=== PATIENT | male | born 1985 | race Caucasian/White ===

== ENCOUNTER 2021-09-26 10:01 | Inpatient (IN) | payer MEDICAID, OTHER ==
[~2021-09-26] VITALS: Ht 170.2 cm; Wt 68.1 kg
[2021-09-26 10:34] LABS: BASOPHILS % 1.4 % (0.0-2.0); EOSINOPHILS % 0.3 % (0.0-5.0); HEMATOCRIT. 45.9 % (42.0-52.0); HEMOGLOBIN. 14.8 g/dL (14.0-18.0); LYMPHOCYTES % 12.6 % (20.0-50.0); MEAN CORPUSCULAR HEMOGLOBIN 25.6 pg (28.0-32.0); MEAN CORPUSCULAR VOLUME 79.1 fL (80.0-94.0); MONOCYTES % 4.7 % (2.0-8.0); PLATELET 627 x1000/uL (130-400); RED CELL DISTRIBUTION WIDTH 17.4 % (11.6-14.6)
[2021-09-26 10:42] LABS: CHLORIDE 104 mEq/L (98-107)
[2021-09-26] MEDS ORDERED: ASPIRIN 325MG EC TABLET PO ONE (10:45)
[2021-09-26] MEDS ORDERED: LIDOCAINE HCL 1% 20ML VIAL (Pyxis) INJ ONE (12:25)
[2021-09-26] MEDS ORDERED: FUROSEMIDE 40MG/4ML VIAL IVP NR (15:30)
[2021-09-26] MEDS ORDERED: DIPHENHYDRAMINE 50MG/ML VIAL IV PRN (15:30)
[2021-09-26] MEDS ORDERED: ACETAMINOPHEN 325MG TABLET PO PRN (15:30)
[2021-09-26] MEDS ORDERED: CLONIDINE 0.1MG TABLET PO PRN (15:30)
[2021-09-26] MEDS ORDERED: ONDANSETRON HCL 4MG/2ML INJ IV PRN (15:30)
[2021-09-26] MEDS ORDERED: GUAIFENESIN 200MG/10ML SUGAR FREE UDC PO PRN (15:30)
[2021-09-26] MEDS ORDERED: MAGNESIUM/ALUMINUM HYDROXIDE/SIMETHICONE 30ML UDC PO PRN (15:30)
[2021-09-26] MEDS ORDERED: IPRATROPIUM/ALBUTEROL 0.5-3(2.5)MG/3ML NEB HHN PRN (15:30)
[2021-09-26] MEDS ORDERED: NALOXONE HCL 0.4MG/ML VIAL IV PRN (15:45)
[2021-09-26] MEDS ORDERED: METOPROLOL TARTRATE 5MG/5ML VIAL IV PRN (16:00)
[2021-09-26] MEDS ORDERED: AMIODARONE HCL 900 MG in DEXT 5% WATER 482 ML IV SCH ×4 (16:00)
[2021-09-26] MEDS ORDERED: DIGOXIN 500MCG/2ML AMP IV SCH (16:00)
[2021-09-26] MEDS ORDERED: AMIODARONE HCL 150 MG in DEXT 5% WATER 100 ML IV SCH (16:00)
[2021-09-26 16:12] LABS: INR 1.4; PROTHROMBIN TIME 14.4 sec (9.6-11.0)
[2021-09-26] MEDS: ENOXAPARIN 40MG/0.4ML SYR SUBCUT SCH (16:33)
[2021-09-26] MEDS: METOPROLOL TARTRATE 50MG TABLET PO SCH ×2 (16:33→21:00)
[2021-09-26] MEDS: FUROSEMIDE 40MG/4ML VIAL IVP SCH (18:00)
[2021-09-26] MEDS ORDERED: METOPROLOL TARTRATE 50MG TABLET PO SCH (21:00)
[2021-09-26] MEDS: AMIODARONE HCL 200 MG TABLET PO SCH (21:00)
[2021-09-26] MEDS ORDERED: ZOLPIDEM TARTRATE 5MG TABLET PO PRN (21:00)
[2021-09-26] MEDS: ATORVASTATIN CALCIUM 10MG TABLET PO SCH (21:44)
[2021-09-26] MEDS: HYDROCODONE/ACETAMINOPHEN 5/325MG TABLET PO PRN (21:47)
[2021-09-26 22:23] VITALS: BP 105/74
[2021-09-27] VITALS (15 sets, daily range): BP systolic 91–147; BP diastolic 47–118
[2021-09-27 06:17] LABS: BASOPHILS % 0.4 % (0.0-2.0); EOSINOPHILS % 0.1 % (0.0-5.0); HEMATOCRIT. 40.4 % (42.0-52.0); HEMOGLOBIN. 12.9 g/dL (14.0-18.0); LYMPHOCYTES % 9.8 % (20.0-50.0); MEAN CORPUSCULAR HEMOGLOBIN 25.5 pg (28.0-32.0); MEAN CORPUSCULAR VOLUME 79.4 fL (80.0-94.0); MEAN PLATELET VOLUME 7.4 fl (7.4-10.4); MONOCYTES % 6.3 % (2.0-8.0); NEUTROPHILS % 83.4 % (40.0-76.0); PLATELET 509 x1000/uL (130-400); RED BLOOD CELL COUNT 5.09 mill/uL (4.7-6.1); RED CELL DISTRIBUTION WIDTH 17.1 % (11.6-14.6)
[2021-09-27 06:29] LABS: CHLORIDE 107 mEq/L (98-107)
[2021-09-27] MEDS: FUROSEMIDE 40MG/4ML VIAL IVP SCH (06:52)
[2021-09-27] MEDS: SODIUM CHLORIDE 0.9% INJ 3ML FLUSH IVF SCH ×3 (06:53→21:22)
[2021-09-27] MEDS ORDERED: FUROSEMIDE 40MG/4ML VIAL IVP SCH (07:15)
[2021-09-27] MEDS ORDERED: ASPIRIN 81MG EC TABLET PO SCH (09:00)
[2021-09-27] MEDS: SPIRONOLACTONE 25MG TABLET PO SCH (09:17)
[2021-09-27] MEDS: METOPROLOL TARTRATE 50MG TABLET PO SCH ×2 (09:17→21:00)
[2021-09-27] MEDS: AMIODARONE HCL 200 MG TABLET PO SCH ×2 (09:17→21:21)
[2021-09-27 14:42] LABS: *AMPHETAMINES SCREEN URINE NEGATIVE (NEGATIVE); *BARBITURATES SCREEN URINE NEGATIVE (NEGATIVE); *BENZODIAZEPINES SCREEN URINE NEGATIVE (NEGATIVE); METHADONE URINE SCREEN NEGATIVE (NEGATIVE)
[2021-09-27 14:43] LABS: *COCAINE SCREEN URINE NEGATIVE (NEGATIVE); CANNABINOID URINE SCREEN NEGATIVE (NEGATIVE); OPIATES URINE SCREEN PRESUMTIVE POSITIVE (NEGATIVE); PHENCYCLIDINE URINE SCREEN NEGATIVE (NEGATIVE)
[2021-09-27] MEDS: ENOXAPARIN 40MG/0.4ML SYR SUBCUT SCH (14:54)
[2021-09-27] MEDS ORDERED: MORPHINE SULFATE 4 MG/ML CPJ (NOT FOR IM USE) IV NR (18:00)
[2021-09-27] MEDS ORDERED: VANCOMYCIN 1500MG in DEXTROSE 5% WATER 250ML IV NR (18:00)
[2021-09-27] MEDS ORDERED: LIDOCAINE HCL 1% 20ML VIAL (Pyxis) INJ INFIL ONE (18:00)
[2021-09-27] MEDS: ATORVASTATIN CALCIUM 10MG TABLET PO SCH (21:35)
[2021-09-27] MEDS: LEVOFLOXACIN 500MG PREMIX 100 ML IV SCH (21:36)
[2021-09-27] MEDS: HYDROCODONE/ACETAMINOPHEN 5/325MG TABLET PO PRN (21:43)
[2021-09-28] VITALS: BP 115/82
[2021-09-28 02:47] LABS: CLARITY URINE CLEAR (CLEAR); COLOR URINE DARK YELLOW (YELLOW); SPECIFIC GRAVITY URINE 1.028 (1.005-1.030)
[2021-09-28 02:48] LABS: KETONES URINE TRACE (NEGATIVE); PROTEIN URINE 1+ (NEGATIVE)
[2021-09-28 02:49] LABS: LEUKOCYTE ESTERASE URINE TRACE (NEGATIVE); NITRITE URINE POSITIVE (NEGATIVE); OCCULT BLOOD URINE NEGATIVE (NEGATIVE)
[2021-09-28 04:00] VITALS: BP 115/72
[2021-09-28] MEDS: SODIUM CHLORIDE 0.9% INJ 3ML FLUSH IVF SCH ×3 (05:44→21:47)
[2021-09-28] MEDS ORDERED: VANCOMYCIN 1G PREMIX 200 ML IV SCH (06:00)
[2021-09-28 08:00] VITALS: BP 114/78
[2021-09-28 08:58] LABS: BG BASE EXCESS -1.8 mmol/L (-2.0-2.0); BG CARBOXYHEMOGLOBIN 1.3 % (0.5-1.5); BG DEOXYHEMOGLOBIN 9.3 % (0.0-5.0); BG FRACTION INSPIRED OXYGEN 21; BG METHEMOGLOBIN 0.4 % (0.0-1.5); BG OXYGEN SATURATION 90.5 % (92.0-98.5); BG PCO2 27.8 mmHg (35.0-45.0); BG PH 7.474 (7.350-7.450); BG PO2 57.8 mmHg (75.0-100.0); BG SAMPLE SITE LEFT RADIAL; BG TOTAL HEMOGLOBIN 17.3 g/dL (12.0-18.0); BG VENT MODE ROOM AIR
[2021-09-28] MEDS ORDERED: DIGOXIN 500MCG/2ML AMP IV NR (09:00)
[2021-09-28] MEDS ORDERED: FUROSEMIDE 40MG/4ML VIAL IVP SCH (09:00)
[2021-09-28] MEDS: AMIODARONE HCL 200 MG TABLET PO SCH ×2 (10:08→21:43)
[2021-09-28] MEDS: METOPROLOL TARTRATE 50MG TABLET PO SCH ×2 (10:09→21:00)
[2021-09-28] MEDS: SPIRONOLACTONE 25MG TABLET PO SCH (10:10)
[2021-09-28 12:00] VITALS: BP 105/68
[2021-09-28] MEDS: HYDROCODONE/ACETAMINOPHEN 10/325MG TABLET PO PRN (15:06)
[2021-09-28] MEDS: ENOXAPARIN 40MG/0.4ML SYR SUBCUT SCH (15:07)
[2021-09-28 16:00] VITALS: BP 107/64
[2021-09-28] MEDS: LEVOFLOXACIN 500MG PREMIX 100 ML IV SCH (18:11)
[2021-09-28] MEDS: DIGOXIN 500MCG/2ML AMP IV SCH (18:12)
[2021-09-28 20:00] VITALS: BP 109/87
[2021-09-28] MEDS ORDERED: VANCOMYCIN 1.25GM PMX (XELLIA) 250 ML IV SCH (21:00)
[2021-09-28] MEDS: IPRATROPIUM BROMIDE (0.02%) 0.5MG/2.5ML NEB HHN SCH (21:02)
[2021-09-28] MEDS: ATORVASTATIN CALCIUM 10MG TABLET PO SCH (21:43)
[2021-09-28] MEDS: TEMAZEPAM 15MG CAPSULE PO SCH (21:43)
[2021-09-28] MEDS: VANCOMYCIN 1250MG in DEXTROSE 5% WATER 250ML IV SCH (21:47)
[2021-09-29] VITALS: BP 123/73
[2021-09-29 04:00] VITALS: BP 126/69
[2021-09-29] MEDS: IPRATROPIUM BROMIDE (0.02%) 0.5MG/2.5ML NEB HHN SCH ×4 (05:26→20:46)
[2021-09-29] MEDS: SODIUM CHLORIDE 0.9% INJ 3ML FLUSH IVF SCH ×3 (05:56→20:50)
[2021-09-29 05:59] LABS: BASOPHILS % 0.2 % (0.0-2.0); EOSINOPHILS % 0.3 % (0.0-5.0); HEMATOCRIT. 46.3 % (42.0-52.0); LYMPHOCYTES % 8.9 % (20.0-50.0); MEAN CORPUSCULAR HEMOGLOBIN 25.1 pg (28.0-32.0); MEAN CORPUSCULAR VOLUME 77.8 fL (80.0-94.0); MEAN PLATELET VOLUME 7.3 fl (7.4-10.4); MONOCYTES % 6.9 % (2.0-8.0); NEUTROPHILS % 83.7 % (40.0-76.0); PLATELET 454 x1000/uL (130-400); RED BLOOD CELL COUNT 5.96 mill/uL (4.7-6.1); RED CELL DISTRIBUTION WIDTH 17.2 % (11.6-14.6)
[2021-09-29 06:48] LABS: CHLORIDE 106 mEq/L (98-107)
[2021-09-29 08:00] VITALS: BP 95/60
[2021-09-29] MEDS: METOPROLOL TARTRATE 50MG TABLET PO SCH ×2 (08:59→20:50)
[2021-09-29] MEDS: VANCOMYCIN 1250MG in DEXTROSE 5% WATER 250ML IV SCH (08:59)
[2021-09-29] MEDS: AMIODARONE HCL 200 MG TABLET PO SCH ×2 (08:59→20:49)
[2021-09-29] MEDS: FUROSEMIDE 40MG TABLET PO SCH (09:00)
[2021-09-29] MEDS: SPIRONOLACTONE 25MG TABLET PO SCH (09:00)
[2021-09-29 12:00] VITALS: BP 98/68
[2021-09-29] MEDS: AMPICILLIN SOD/SULBACTAM NA 3 G in SODIUM CHLORIDE 0.9% 100 ML IV SCH ×3 (14:52→23:20)
[2021-09-29] MEDS: ENOXAPARIN 80MG/0.8ML SYR SUBCUT SCH (14:53)
[2021-09-29] MEDS: HYDROCODONE/ACETAMINOPHEN 10/325MG TABLET PO PRN (15:05)
[2021-09-29 15:51] VITALS: BP 117/69
[2021-09-29] MEDS: DIGOXIN 500MCG/2ML AMP IV SCH (17:22)
[2021-09-29] MEDS: VANCOMYCIN 750 MG in DEXT 5% WATER 250 ML IV SCH (17:22)
[2021-09-29 20:00] VITALS: BP 127/67
[2021-09-29] MEDS: TEMAZEPAM 15MG CAPSULE PO SCH (20:49)
[2021-09-29] MEDS: ATORVASTATIN CALCIUM 10MG TABLET PO SCH (20:49)
[2021-09-30] VITALS: BP 100/68
[2021-09-30] MEDS: HYDROCODONE/ACETAMINOPHEN 10/325MG TABLET PO PRN ×2 (00:35→17:44)
[2021-09-30] MEDS: IPRATROPIUM BROMIDE (0.02%) 0.5MG/2.5ML NEB HHN SCH ×4 (02:13→21:01)
[2021-09-30 04:00] VITALS: BP 106/63
[2021-09-30] MEDS: AMPICILLIN SOD/SULBACTAM NA 3 G in SODIUM CHLORIDE 0.9% 100 ML IV SCH ×3 (05:05→17:42)
[2021-09-30] MEDS: ENOXAPARIN 80MG/0.8ML SYR SUBCUT SCH ×2 (05:06→17:42)
[2021-09-30] MEDS: VANCOMYCIN 750 MG in DEXT 5% WATER 250 ML IV SCH ×2 (06:42→17:43)
[2021-09-30] MEDS: SODIUM CHLORIDE 0.9% INJ 3ML FLUSH IVF SCH ×3 (06:42→21:35)
[2021-09-30 07:43] LABS: INR 1.3
[2021-09-30 08:00] VITALS: BP 98/62
[2021-09-30] MEDS: METOPROLOL TARTRATE 50MG TABLET PO SCH ×2 (09:00→21:00)
[2021-09-30] MEDS: AMIODARONE HCL 200 MG TABLET PO SCH ×2 (09:45→21:34)
[2021-09-30] MEDS: SPIRONOLACTONE 25MG TABLET PO SCH (09:45)
[2021-09-30] MEDS: FUROSEMIDE 40MG TABLET PO SCH (09:45)
[2021-09-30 12:00] VITALS: BP 103/71
[2021-09-30] MEDS ORDERED: DIGOXIN 500MCG/2ML AMP IV NR (13:00)
[2021-09-30 16:00] VITALS: BP 104/57
[2021-09-30] MEDS: DIGOXIN 500MCG/2ML AMP IV SCH (17:43)
[2021-09-30 20:00] VITALS: BP 103/62
[2021-09-30] MEDS: ATORVASTATIN CALCIUM 10MG TABLET PO SCH (21:34)
[2021-09-30] MEDS: TEMAZEPAM 15MG CAPSULE PO SCH (21:34)
[2021-10-01] VITALS: BP 110/61
[2021-10-01] MEDS: HYDROCODONE/ACETAMINOPHEN 10/325MG TABLET PO PRN ×3 (00:01→16:15)
[2021-10-01] MEDS: IPRATROPIUM BROMIDE (0.02%) 0.5MG/2.5ML NEB HHN SCH ×3 (02:08→13:14)
[2021-10-01 04:00] VITALS: BP 106/62
[2021-10-01 04:08] LABS: BASOPHILS % 0.3 % (0.0-2.0); EOSINOPHILS % 1.8 % (0.0-5.0); HEMATOCRIT. 43.9 % (42.0-52.0); HEMOGLOBIN. 14.3 g/dL (14.0-18.0); LYMPHOCYTES % 12.9 % (20.0-50.0); MEAN CORPUSCULAR HEMOGLOBIN 25.4 pg (28.0-32.0); MEAN CORPUSCULAR VOLUME 77.9 fL (80.0-94.0); MEAN PLATELET VOLUME 7.2 fl (7.4-10.4); MONOCYTES % 6.1 % (2.0-8.0); NEUTROPHILS % 78.9 % (40.0-76.0); PLATELET 384 x1000/uL (130-400); RED BLOOD CELL COUNT 5.63 mill/uL (4.7-6.1); RED CELL DISTRIBUTION WIDTH 17.7 % (11.6-14.6)
[2021-10-01 04:17] LABS: CHLORIDE 105 mEq/L (98-107)
[2021-10-01 04:25] LABS: VANCOMYCIN TROUGH 9.1 ug/mL (5.0-10.0)
[2021-10-01 04:47] LABS: DIGOXIN 1.4 ng/mL (0.9-2.0)
[2021-10-01] MEDS: AMPICILLIN SOD/SULBACTAM NA 3 G in SODIUM CHLORIDE 0.9% 100 ML IV SCH ×6 (06:01→23:19)
[2021-10-01] MEDS: SODIUM CHLORIDE 0.9% INJ 3ML FLUSH IVF SCH ×3 (06:17→20:54)
[2021-10-01] MEDS: ENOXAPARIN 80MG/0.8ML SYR SUBCUT SCH ×2 (06:23→18:42)
[2021-10-01] MEDS: VANCOMYCIN 750 MG in DEXT 5% WATER 250 ML IV SCH ×3 (06:24→20:54)
[2021-10-01 08:00] VITALS: BP 108/76
[2021-10-01] MEDS: SPIRONOLACTONE 25MG TABLET PO SCH (08:30)
[2021-10-01] MEDS: AMIODARONE HCL 200 MG TABLET PO SCH ×2 (08:30→20:52)
[2021-10-01] MEDS: METOPROLOL TARTRATE 50MG TABLET PO SCH ×2 (08:30→20:53)
[2021-10-01 12:00] VITALS: BP 111/71
[2021-10-01] MEDS: ACETAMINOPHEN 325MG TABLET PO PRN (12:20)
[2021-10-01 16:00] VITALS: BP 121/87
[2021-10-01] MEDS: DIGOXIN 500MCG/2ML AMP IV SCH (18:42)
[2021-10-01] MEDS: DOCUSATE SODIUM 100MG CAPSULE PO SCH (18:42)
[2021-10-01 20:00] VITALS: BP 130/88
[2021-10-01] MEDS: TEMAZEPAM 15MG CAPSULE PO SCH (20:50)
[2021-10-01] MEDS: ATORVASTATIN CALCIUM 10MG TABLET PO SCH (20:52)
[2021-10-02] VITALS: BP 119/70
[2021-10-02] MEDS: HYDROCODONE/ACETAMINOPHEN 10/325MG TABLET PO PRN (02:56)
[2021-10-02 04:00] VITALS: BP 119/71
[2021-10-02 04:18] LABS: CHLORIDE 104 mEq/L (98-107)
[2021-10-02 04:23] LABS: VANCOMYCIN TROUGH 20.4 ug/mL (5.0-10.0)
[2021-10-02] MEDS: AMPICILLIN SOD/SULBACTAM NA 3 G in SODIUM CHLORIDE 0.9% 100 ML IV SCH ×3 (05:14→18:47)
[2021-10-02] MEDS: VANCOMYCIN 750 MG in DEXT 5% WATER 250 ML IV SCH ×3 (05:58→23:10)
[2021-10-02] MEDS: ENOXAPARIN 80MG/0.8ML SYR SUBCUT SCH ×2 (05:58→18:50)
[2021-10-02] MEDS: SODIUM CHLORIDE 0.9% INJ 3ML FLUSH IVF SCH ×3 (05:59→23:10)
[2021-10-02 06:04] LABS: BASOPHILS % 0.6 % (0.0-2.0); EOSINOPHILS % 2.2 % (0.0-5.0); HEMATOCRIT. 41.2 % (42.0-52.0); HEMOGLOBIN. 13.4 g/dL (14.0-18.0); LYMPHOCYTES % 12.2 % (20.0-50.0); MEAN CORPUSCULAR HEMOGLOBIN 25.2 pg (28.0-32.0); MEAN CORPUSCULAR VOLUME 77.5 fL (80.0-94.0); MEAN PLATELET VOLUME 7.8 fl (7.4-10.4); MONOCYTES % 6.8 % (2.0-8.0); NEUTROPHILS % 78.2 % (40.0-76.0); PLATELET 299 x1000/uL (130-400); RED BLOOD CELL COUNT 5.32 mill/uL (4.7-6.1); RED CELL DISTRIBUTION WIDTH 17.5 % (11.6-14.6)
[2021-10-02 08:00] VITALS: BP 99/60
[2021-10-02] MEDS: IPRATROPIUM BROMIDE (0.02%) 0.5MG/2.5ML NEB HHN SCH ×3 (08:20→20:12)
[2021-10-02] MEDS: METOPROLOL TARTRATE 50MG TABLET PO SCH ×2 (09:54→23:10)
[2021-10-02] MEDS: AMIODARONE HCL 200 MG TABLET PO SCH ×2 (09:55→18:49)
[2021-10-02] MEDS: SPIRONOLACTONE 25MG TABLET PO SCH (09:56)
[2021-10-02] MEDS: DOCUSATE SODIUM 100MG CAPSULE PO SCH ×2 (09:56→18:49)
[2021-10-02 12:00] VITALS: BP 90/61
[2021-10-02 16:00] VITALS: BP 102/73
[2021-10-02] MEDS: DIGOXIN 500MCG/2ML AMP IV SCH (18:47)
[2021-10-02 20:00] VITALS: BP 122/68
[2021-10-02] MEDS: ATORVASTATIN CALCIUM 10MG TABLET PO SCH (23:09)
[2021-10-02] MEDS: TEMAZEPAM 15MG CAPSULE PO SCH (23:10)
[2021-10-03] VITALS: BP 116/76
[2021-10-03] MEDS: AMPICILLIN SOD/SULBACTAM NA 3 G in SODIUM CHLORIDE 0.9% 100 ML IV SCH ×4 (01:24→17:00)
[2021-10-03] MEDS: IPRATROPIUM BROMIDE (0.02%) 0.5MG/2.5ML NEB HHN SCH ×4 (02:30→21:11)
[2021-10-03 04:00] VITALS: BP 114/59
[2021-10-03] MEDS: SODIUM CHLORIDE 0.9% INJ 3ML FLUSH IVF SCH ×2 (05:46→14:02)
[2021-10-03] MEDS: ENOXAPARIN 80MG/0.8ML SYR SUBCUT SCH ×2 (05:46→17:01)
[2021-10-03 08:00] VITALS: BP 107/65
[2021-10-03] MEDS: METOPROLOL TARTRATE 50MG TABLET PO SCH ×2 (09:00→20:28)
[2021-10-03] MEDS: DOCUSATE SODIUM 100MG CAPSULE PO SCH ×2 (09:52→16:52)
[2021-10-03] MEDS: AMIODARONE HCL 200 MG TABLET PO SCH (09:53)
[2021-10-03] MEDS: SPIRONOLACTONE 25MG TABLET PO SCH (09:53)
[2021-10-03 12:08] VITALS: BP 116/79
[2021-10-03 16:00] VITALS: BP 129/71
[2021-10-03] MEDS: DIGOXIN 125MCG TABLET PO SCH (17:00)
[2021-10-03 20:00] VITALS: BP 96/73
[2021-10-03] MEDS: TEMAZEPAM 15MG CAPSULE PO SCH (20:27)
[2021-10-03] MEDS: ATORVASTATIN CALCIUM 10MG TABLET PO SCH (20:28)
[2021-10-04] VITALS: BP 92/61
[2021-10-04] MEDS: SODIUM CHLORIDE 0.9% INJ 3ML FLUSH IVF SCH ×4 (00:17→21:29)
[2021-10-04] MEDS: AMPICILLIN SOD/SULBACTAM NA 3 G in SODIUM CHLORIDE 0.9% 100 ML IV SCH ×3 (00:17→11:49)
[2021-10-04] MEDS: IPRATROPIUM BROMIDE (0.02%) 0.5MG/2.5ML NEB HHN SCH ×4 (01:25→20:55)
[2021-10-04 04:00] VITALS: BP 104/67
[2021-10-04] MEDS: ENOXAPARIN 80MG/0.8ML SYR SUBCUT SCH ×2 (05:18→17:06)
[2021-10-04 07:47] LABS: BASOPHILS % 0.3 % (0.0-2.0); EOSINOPHILS % 0.6 % (0.0-5.0); HEMATOCRIT. 46.1 % (42.0-52.0); HEMOGLOBIN. 15.1 g/dL (14.0-18.0); LYMPHOCYTES % 11.8 % (20.0-50.0); MEAN CORPUSCULAR HEMOGLOBIN 25.2 pg (28.0-32.0); MEAN CORPUSCULAR VOLUME 76.8 fL (80.0-94.0); MEAN PLATELET VOLUME 7.6 fl (7.4-10.4); MONOCYTES % 8.6 % (2.0-8.0); NEUTROPHILS % 78.7 % (40.0-76.0); PLATELET 348 x1000/uL (130-400)
[2021-10-04 08:22] VITALS: BP 107/68
[2021-10-04 08:38] LABS: CHLORIDE 106 mEq/L (98-107)
[2021-10-04] MEDS: SPIRONOLACTONE 25MG TABLET PO SCH (09:52)
[2021-10-04] MEDS: DOCUSATE SODIUM 100MG CAPSULE PO SCH ×2 (09:52→17:07)
[2021-10-04] MEDS: METOPROLOL TARTRATE 50MG TABLET PO SCH ×2 (09:52→21:00)
[2021-10-04] MEDS: AMIODARONE HCL 200 MG TABLET PO SCH (09:52)
[2021-10-04 11:43] VITALS: BP 106/76
[2021-10-04] MEDS: ACETAMINOPHEN 325MG TABLET PO PRN (11:57)
[2021-10-04] MEDS ORDERED: MORPHINE SULFATE 4 MG/ML CPJ (NOT FOR IM USE) IV NR (14:30)
[2021-10-04] MEDS: HYDROCODONE/ACETAMINOPHEN 10/325MG TABLET PO PRN (14:31)
[2021-10-04 16:00] VITALS: BP 112/74
[2021-10-04] MEDS: DIGOXIN 125MCG TABLET PO SCH (17:07)
[2021-10-04 20:00] VITALS: BP 123/69
[2021-10-04] MEDS: ATORVASTATIN CALCIUM 10MG TABLET PO SCH (21:27)
[2021-10-05] VITALS: BP 108/76
[2021-10-05] MEDS: IPRATROPIUM BROMIDE (0.02%) 0.5MG/2.5ML NEB HHN SCH ×4 (02:25→21:45)
[2021-10-05 04:00] VITALS: BP 124/61
[2021-10-05] MEDS: SODIUM CHLORIDE 0.9% INJ 3ML FLUSH IVF SCH ×3 (05:41→20:10)
[2021-10-05] MEDS: ENOXAPARIN 80MG/0.8ML SYR SUBCUT SCH (05:41)
[2021-10-05 08:00] VITALS: BP 120/61
[2021-10-05] MEDS: DOCUSATE SODIUM 100MG CAPSULE PO SCH ×2 (08:53→16:57)
[2021-10-05] MEDS: SPIRONOLACTONE 25MG TABLET PO SCH (08:53)
[2021-10-05] MEDS: AMIODARONE HCL 200 MG TABLET PO SCH (08:53)
[2021-10-05] MEDS: METOPROLOL TARTRATE 50MG TABLET PO SCH ×2 (08:57→20:10)
[2021-10-05 12:00] VITALS: BP 119/68
[2021-10-05] MEDS ORDERED: MAGNESIUM HYDROXIDE 400MG/5ML 30ML UDC PO PRN (15:00)
[2021-10-05 16:00] VITALS: BP 119/62
[2021-10-05] MEDS: APIXABAN 5 MG TABLET PO SCH (16:57)
[2021-10-05] MEDS: DIGOXIN 125MCG TABLET PO SCH (17:00)
[2021-10-05] MEDS ORDERED: NALOXONE HCL 0.4MG/ML VIAL IV PRN (17:15)
[2021-10-05 20:00] VITALS: BP 125/70
[2021-10-05] MEDS: ATORVASTATIN CALCIUM 10MG TABLET PO SCH (20:10)
[2021-10-06] VITALS: BP 114/60
[2021-10-06] MEDS: IPRATROPIUM BROMIDE (0.02%) 0.5MG/2.5ML NEB HHN SCH ×4 (01:28→22:27)
[2021-10-06 04:00] VITALS: BP 99/66
[2021-10-06] MEDS: SODIUM CHLORIDE 0.9% INJ 3ML FLUSH IVF SCH ×3 (05:28→20:35)
[2021-10-06 08:10] VITALS: BP 118/62
[2021-10-06] MEDS: DOCUSATE SODIUM 100MG CAPSULE PO SCH ×2 (08:59→15:00)
[2021-10-06] MEDS: METOPROLOL TARTRATE 50MG TABLET PO SCH ×2 (09:03→20:35)
[2021-10-06] MEDS: APIXABAN 5 MG TABLET PO SCH ×2 (09:03→15:00)
[2021-10-06] MEDS: AMIODARONE HCL 200 MG TABLET PO SCH (09:03)
[2021-10-06] MEDS: SPIRONOLACTONE 25MG TABLET PO SCH (09:03)
[2021-10-06 12:00] VITALS: BP 140/62
[2021-10-06] MEDS ORDERED: NA PHOS,M-B/NA PHOS,DI-BA ENEMA 118ML PR NR (12:00)
[2021-10-06] MEDS: DIGOXIN 125MCG TABLET PO SCH (15:00)
[2021-10-06] MEDS: HYDROCODONE/ACETAMINOPHEN 10/325MG TABLET PO PRN (15:04)
[2021-10-06 16:00] VITALS: BP 123/78
[2021-10-06] MEDS ORDERED: SPIR25TA6 PO (16:22)
[2021-10-06] MEDS ORDERED: LIP40 PO (16:22)
[2021-10-06] MEDS ORDERED: FURO80TA3 PO (16:23)
[2021-10-06] MEDS ORDERED: METO25TA6 PO (16:24)
[2021-10-06] MEDS ORDERED: AMI2 PO (16:24)
[2021-10-06 20:00] VITALS: BP 117/77
[2021-10-06] MEDS: ATORVASTATIN CALCIUM 10MG TABLET PO SCH (20:35)
[2021-10-07] VITALS: BP 108/57
[2021-10-07] MEDS: IPRATROPIUM BROMIDE (0.02%) 0.5MG/2.5ML NEB HHN SCH ×3 (03:07→13:42)
[2021-10-07 04:00] VITALS: BP 128/68
[2021-10-07] MEDS: SODIUM CHLORIDE 0.9% INJ 3ML FLUSH IVF SCH ×2 (05:39→14:00)
[2021-10-07 07:35] VITALS: BP 120/66
[2021-10-07] MEDS: APIXABAN 5 MG TABLET PO SCH (08:13)
[2021-10-07] MEDS: AMIODARONE HCL 200 MG TABLET PO SCH (08:13)
[2021-10-07] MEDS: METOPROLOL TARTRATE 50MG TABLET PO SCH (08:13)
[2021-10-07] MEDS: DOCUSATE SODIUM 100MG CAPSULE PO SCH (08:14)
[2021-10-07 11:56] VITALS: BP 96/61
[2021-10-07] MEDS ORDERED: FUROSEMIDE 40MG/4ML VIAL IVP SCH (14:00)
[2021-10-07 16:00] VITALS: BP 121/68
[2021-10-08] MEDS ORDERED: FUROSEMIDE 40MG/4ML VIAL IVP SCH (09:00)
== END 2021-10-07 16:20 | disposition home or self-care (01) | DRG 720 ==
LOC: ER 10:01 → 5WST 11:23 → EDBEDREQTM 11:24 → EDBEDREQ 11:24 → ENRESERV 20:54 → 7EST 10-05 10:31
PROVIDERS: ADMIT Internal Medicine; ATTEND Internal Medicine
PROC: 0W9930Z Drainage of Right Pleural Cavity with Drainage Device, Percutaneous Approach (ICD-10-PCS; principal; 2021-09-26)
PROC: 0W9930Z Drainage of Right Pleural Cavity with Drainage Device, Percutaneous Approach (ICD-10-PCS; 2021-09-27)
DX: A41.9 Sepsis, unspecified organism (principal); J96.00 Acute respiratory failure, unspecified whether with hypoxia or hypercapnia; J93.0 Spontaneous tension pneumothorax; I50.23 Acute on chronic systolic (congestive) heart failure; I31.3 Pericardial effusion (noninflammatory); J18.9 Pneumonia, unspecified organism; I82.621 Acute embolism and thrombosis of deep veins of right upper extremity; J94.8 Other specified pleural conditions; I42.8 Other cardiomyopathies; I47.1 Supraventricular tachycardia; I11.0 Hypertensive heart disease with heart failure; I48.0 Paroxysmal atrial fibrillation; I49.3 Ventricular premature depolarization; D75.839 Thrombocytosis, unspecified; I48.92 Unspecified atrial flutter; K59.00 Constipation, unspecified; Z79.899 Other long term (current) drug therapy; I25.2 Old myocardial infarction; R07.2 Precordial pain; I51.3 Intracardiac thrombosis, not elsewhere classified
CPT/HCPCS: 36415; 36600; 71045; 71250; 74018; 80048; 80053; 80162; 80202; 80305; 81003; 82040; 82375; 82805; 83615; 83735; 83880; 84100; 84145; 84484; 85025; 86038; 88108; 88312; 93005; 93306; 93971; 94640; 97116; 97162; 99291; C1769; J0282; J0295; J1160; J1650; J1940; J1956; J2270; J2405; J3370; J3490; J7040; J7050; J7060